=== PATIENT | male | born 1975 | race Caucasian/White ===

== ENCOUNTER 2017-05-12 18:27 | Emergency (ER) | payer BC, OTHER ==
[~2017-05-12] VITALS: Ht 190.5 cm; Wt 101.5 kg
[2017-05-12 18:30] VITALS: BP 171/83; PULSE 85; TEMP 36.8; O2SAT 97; Ht 190.5 cm; Wt 101.5 kg
[2017-05-12] MEDS ORDERED: LOSA1TAB PO (18:55)
[2017-05-12] MEDS ORDERED: TRMCR130WC TOP (18:55)
[2017-05-12] MEDS ORDERED: GELATIN SPONGE 12-7MM EXT ONE (19:00)
--- NOTE | 2017-05-12 23:29 | EMERGENCY ROOM VISIT NOTE ---
History First contact with patient: 18:38 Chief Complaint: BLEEDING Stated Complaint: LEFT LEG BLEEDING Nursing Triage Summary: Patient ambulatory to triage with an upright and steady gait, states "I have something on my left leg that is spraying blood all over the place. I don't know if it's a vein or what. It has been bleeding on and off since Thursday." History of Present Illness The patient is a 41 year old male who presents to the Emergency Room with complaints of persistent bleeding from his left leg for the past 4 days. The patient states that he showered 4 days ago, and went out to a local restaurant. When he returned home he noticed that his sock and shoe were full of blood. He noticed a very small area of persistent bleeding along the left side lower leg. The patient does not recall other injury or trauma. The bleeding did initially stop, however yesterday he showered again, and the bleeding returned. The patient does not have history of coagulopathy. He does not take blood thinners. He rates his discomfort a 1/10. He believes he is up-to-date on his tetanus. Review of Systems More than 10 systems were reviewed and otherwise negative with the exception of history of present illness. Past Medical/Surgical History No chronic medical disease Family History No pertinent family history Social History Smoking Status: Current Every Day Smoker Marital Status: Occupation Status: employed Current/Historical Medications Scheduled Losartan Potassium (Cozaar), 25 MG PO DAILY Triamcinolone Acet (Aristocort 0.1%), 1 APPLN TOP PRN Physical Exam Vital Signs Date Time Temp Pulse Resp B/P (MAP) Pulse Ox O2 Delivery O2 Flow Rate FiO2 05/12/17 18:30 36.8 85 20 171/83 97 Room Air Physical Exam VITALS: Vitals are noted on the nurse's note and reviewed by myself. Vital signs stable. GENERAL: Well-developed, well-nourished, white male, who is in no acute distress and resting comfortably. Patient is cooperative with the examination. HEART: Regular rate and rhythm without murmurs gallops or rubs. LUNGS: Clear to auscultation bilaterally without wheezes, rales or rhonchi. No retractions or accessory muscle use. SKIN: The skin was with a small 2 mm area along the left lateral lower extremity with some very minimal bleeding. This appears to be over a varicose vein. Medical Decision & Procedures Medications Administered Medications (Trade) Dose Ordered Sig/Sheree Route Start Time Stop Time Status Last Admin Dose Admin Gelatin (Surgifoam Sponge 12-7MM (SMALL)) 1 ea NOW ONCE EXT 05/12/17 19:00 05/12/17 19:01 DC 05/12/17 19:03 1 EA ED Course Physical exam and history were performed. Nursing notes, EMR, and Medication List were personally reviewed. Patient appears to have bleeding from a varicose vein for the past several days. I discussed options of care with the patient and offered a Gelfoam dressing versus suture with figure of 8 repair. The patient elects for Gelfoam pressure dressing, which was placed. The patient is to follow with his primary care physician for further management. He was otherwise invited back to the ER with any new, worsening, or concerning symptoms. The chart was completed utilizing [employer] Speech Voice Recognition Software. Grammatical errors, random word insertions, pronoun errors, and incomplete sentences are an occasional consequence of this system due to software limitations, ambient noise, and hardware issues. Any formal questions or concerns about the content, text, or information contained within the body of this dictation should be directly addressed to the provider for clarification. . 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 This is not a substitute for, or an effort to provide, complete comprehensive medical care. It is not possible to recognize and treat all injuries or illnesses in a single emergency department visit. For this reason it is recommended that you followup with your primary care physician later this week for recheck. Try to keep the Gelfoam dressing in place for the next 2-3 days. You are welcome to return to the emergency department anytime with new, worsening, or concerning symptoms.
== END 2017-05-12 19:04 | disposition home or self-care (01) ==
LOC: C.EDB 18:29 → C.EDD 19:04
DX: I83.892 Varicose veins of left lower extremity with other complications (principal); F17.210 Nicotine dependence, cigarettes, uncomplicated; Z79.899 Other long term (current) drug therapy